=== PATIENT | male | born 1975 | race African-American/Black ===

== ENCOUNTER 2021-09-05 18:22 | Observation (INO) ==
[2021-09-05] MEDS ORDERED: MORPHINE 2 MG/1 ML SYRINGE IV STA ×2 (18:42→20:51)
[2021-09-05] MEDS ORDERED: ONDANSETRON 4 MG/2 ML VIAL IV STA (18:42)
[2021-09-05] MEDS ORDERED: LACTATED RINGERS 2,000 ML IV STA (18:42)
[2021-09-05] MEDS ORDERED: DIPH/TET/ACEL PERT BOOSTER VACCINE 0.5 ML VIAL IM ONE (18:44)
[2021-09-05 19:04] LABS: Basophils % 0.2 % (0.0-0.8); Eosinophils % 0.3 % (0.00-10.9); Hematocrit 40.5 VOL% (42.0-52.0); Hemoglobin 13.7 GM/DL (14.0-18.0); Immature Granulocytes % 0.3 %; Immature Granulocytes Absolute 0.03 #; Lymphocytes # 1.2 10*3/uL (1.4-4.0); Lymphocytes % 11.6 % (21.2-54.2); Mean Corpuscular HGB Conc 33.8 GM/DL (32-36); Mean Corpuscular Volume 102.3 FL (87-102); Mean Platelet Volume 9.5 FL (9.6-12.0); Monocytes % 7.3 % (1.7-12.7); Neutrophils % 80.3 % (38.7-73.9); Platelet Count 236 T/CUMM (130-400); Red Blood Count 3.96 MC/CUMM (3.8-5.5); Red Cell Distribution Width 12.1 % (9.3-17.3); White Blood Count 10.3 T/CUMM (4-12)
[2021-09-05 19:22] LABS: Alanine Aminotransferase 26 U/L (16-61); Albumin 3.9 G/DL (3.4-5.0); Alkaline Phosphatase 91 U/L (45-117); Aspartate Amino Transferase 27 U/L (0-37); Blood Urea Nitrogen 8 MG/DL (7-18); Calcium 8.8 MG/DL (8.5-10.1); Carbon Dioxide 31 MMOL/L (21-32); Estimated Glom Filtration Rate 111 ML/MIN; Glucose 113 MG/DL (74-106); Osmolality,Calculated 273.7 MOS/KG (273-304); Sodium 138 MMOL/L (136-145); Total Protein 7.5 G/DL (6.4-8.2)
[2021-09-05 19:27] LABS: INR 1.1; PT Patient Result 11.8 SECS (10.5-12.0); Partial Thromboplastin Time 22.8 SECS (23.9-33.8)
[2021-09-05 20:44] LABS: Barbiturates Screen,Urine Negative (Negative); Benzodiazepines Screen,Urine Negative (Negative); Cannabinoid Screen,Urine Positive (Negative); Opiate Screen,Urine Negative (Negative); Phencyclidine Screen,Urine Negative (Negative)
[2021-09-05] MEDS ORDERED: ONDANSETRON 4 MG/2 ML VIAL IV ONE (20:51)
[2021-09-05] MEDS ORDERED: cefTRIAXone 1,000 MG in SODIUM CHLORIDE 0.9% 100 ML IV STA (20:51)
[2021-09-05] MEDS ORDERED: PHENYLEPHRINE 0.5% NASAL SPRAY 15 ML BOTTLE BOTH NARES STA (20:52)
[2021-09-05] MEDS ORDERED: ACETAMINOPHEN 325 MG TABLET PO PRN (20:52)
[2021-09-05] MEDS ORDERED: PROMETHAZINE 25 MG/1 ML VIAL IM PRN (20:52)
[2021-09-05] MEDS ORDERED: MORPHINE 2 MG/1 ML SYRINGE IV PRN (20:52)
[2021-09-05] MEDS ORDERED: ONDANSETRON 4 MG/2 ML VIAL IV PRN (20:52)
[2021-09-05] MEDS: LACTATED RINGERS 1,000 ML IV SCH (22:27)
[2021-09-06 02:48] LABS: Basophils % 0.3 % (0.0-0.8); Eosinophils % 0.2 % (0.00-10.9); Hematocrit 41.9 VOL% (42.0-52.0); Immature Granulocytes % 0.2 %; Immature Granulocytes Absolute 0.02 #; Lymphocytes # 1.3 10*3/uL (1.4-4.0); Lymphocytes % 11.9 % (21.2-54.2); Mean Corpuscular HGB Conc 33.4 GM/DL (32-36); Mean Corpuscular Volume 102.2 FL (87-102); Mean Platelet Volume 9.9 FL (9.6-12.0); Monocytes % 9.5 % (1.7-12.7); Neutrophils % 77.9 % (38.7-73.9); Platelet Count 238 T/CUMM (130-400); White Blood Count 10.8 T/CUMM (4-12)
[2021-09-06] MEDS: PHENYLEPHRINE 0.5% NASAL SPRAY 15 ML BOTTLE BOTH NARES SCH ×6 (02:48→22:36)
[2021-09-06 03:01] LABS: Albumin 3.6 G/DL (3.4-5.0); Calcium 8.9 MG/DL (8.5-10.1); Potassium 3.8 MMOL/L (3.5-5.1); Total Protein 7.2 G/DL (6.4-8.2)
[2021-09-06] MEDS: LACTATED RINGERS 1,000 ML IV SCH ×3 (06:24→23:36)
[2021-09-06] MEDS: PANTOPRAZOLE 40 MG VIAL IV SCH (10:32)
[2021-09-07] MEDS: PHENYLEPHRINE 0.5% NASAL SPRAY 15 ML BOTTLE BOTH NARES SCH ×4 (01:56→14:20)
[2021-09-07] MEDS: LACTATED RINGERS 1,000 ML IV SCH (08:47)
[2021-09-07] MEDS: PANTOPRAZOLE 40 MG VIAL IV SCH (08:47)
[2021-09-07 12:45] VITALS: BP 132/80
== END 2021-09-07 14:40 | disposition home or self-care (01) ==
LOC: N.ED 18:22 → N.EDINP 18:22 → N.3E 23:50
PROVIDERS: ADMIT Surgery; ATTEND Surgery